=== PATIENT | male | born 1940 | race Caucasian/White ===

== ENCOUNTER 2022-11-28 07:28 | Outpatient (OUT) | payer MEDICARE, OTHER, SELFPAY ==
--- NOTE | 2022-11-28 07:39 | CT_ITS ---
[address] [address] Patient Name: CRISTIN COPPOLA MRN: [id number] date: 1940 Sex: M Assigned Patient Location: CT Current Patient Location: CT Accession/Order Number: [id number] Exam Date: 11/28/2022 07:50 Report Date: 11/28/2022 08:51 At the request of: NON-STAFF PHYSICIAN Procedure: CT chest w con EXAMINATION: CT chest w con HISTORY: Cough R05, Shortness Of Breath R06.02 ; shortness of breath with exertion COMPARISON: No relevant comparison available. TECHNIQUE: Multi-planar CT images were obtained without and/or with IV contrast as indicated by examination type. Axial, Coronal, and Sagittal images. Dose reduction techniques were achieved by using automated exposure control and/or adjustment of mA and/or kV according to patient size and/or use of iterative reconstruction technique. FINDINGS: LUNGS: Fibrous stranding and a 12 mm triangular-shaped opacity within left posterior costophrenic angle. Moderate emphysematous changes. PLEURA: No mass, effusion, or pneumothorax. VASCULATURE: No abnormality. AYAH: No mass or adenopathy. MEDIASTINUM: No mass or adenopathy. CARDIAC: No enlargement, pericardial thickening, or significant calcification. AORTA: Mild dilation of ascending aorta, 4.1 cm. CHEST WALL: No mass or axillary adenopathy. BONES: L1-2 marked central canal and bilateral foramen narrowing secondary to degenerative disc disease and degenerative facet arthropathy. No bone lesion or fracture. LIMITED ABDOMEN: No suspicious findings Limited images of the upper abdomen. OTHER: Negative. IMPRESSION: 1. No pulmonary embolism or significant acute pulmonary infiltrates. 2. Mild stranding and 12 mm triangular-shaped atelectasis versus scarring versus nodule within left costophrenic angle. Follow-up CT chest in 3 months is recommended to document stability versus change. 3. 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 Electronically authenticated by: JULIET SIMON Date: 11/28/2022 08:51
[2022-11-28 07:43] LABS: Estimated GFR (African America >60 (>=60); Estimated GFR (Non-African Ame >60 (>=60)
== END 2022-11-28 07:29 | disposition home or self-care (01) ==
LOC: CT 07:28
DX: R05.9 Cough, unspecified (principal); R06.02 Shortness of breath; R06.09 Other forms of dyspnea
CPT/HCPCS: 36415; 71260; 82565; Q9967

== ENCOUNTER 2022-12-07 12:10 | Emergency (ER) | payer MEDICARE, OTHER, SELFPAY ==
[2022-12-07 12:13] VITALS: BP 166/99; PULSE 75; RESP 20; TEMP 36.5; O2SAT 98; BMI 18.3
[2022-12-07 12:16] VITALS: O2SAT 98
[2022-12-07 12:17] VITALS: BP 166/99; PULSE 64; RESP 16
--- NOTE | 2022-12-07 12:45 | ED_ITS ---
HPI - SOB/Dyspnea General Chief Complaint: Shortness of Breath/Dyspnea Stated Complaint: SHORTNESS OF BREATH Time Seen by Provider: 12/07/22 12:45 Source: patient and family Mode of arrival: walk-in Limitations: no limitations History of Present Illness HPI Narrative: Patient presents emergency department complaining of shortness of breath and nausea. Patient states she's had these symptoms ongoing for at least 4 months. He's had multiple workups done had a CT scan done of his chest a few weeks ago which did not show anything acute. Patient states that was small amount of scar tissue. He also had an endoscopy done by Dr. vera to look into esophagitis and everything looked okay. Patient states at times he feels like he has a hard time swallowing. He complains of feeling nauseated but he is not vomiting. He is able to eat and drink. He denies any weight loss. He denies any fever, chills, or cough. He denies any chest pain. He denies any lower extremity edema, or cramping. He denies any abdominal pain, flank pain, hematuria, dysuria. Patient denies any dizziness, lightheadedness, or palpitations. Related Data Home Medications Medication Instructions Recorded Confirmed famotidine 20 mg tablet 20 mg PO DAILY 12/07/22 12/07/22 folic acid-vit B6-vit B12 2.5 1 tab PO DAILY 12/07/22 12/07/22 mg-25 mg-2 mg tablet (Folbic) hydroxychloroquine 200 mg tablet 200 mg PO BID 12/07/22 12/07/22 levothyroxine 150 mcg tablet 150 mcg PO DAILY 12/07/22 12/07/22 pantoprazole 40 mg tablet,delayed 40 mg PO DAILY 12/07/22 12/07/22 release Previous Rx's Medication Instructions Recorded ondansetron HCl 4 mg tablet 4 mg PO DAILY PRN nausea and 12/07/22 vomiting 4 days #10 tabs Allergies Allergy/AdvReac Type Severity Reaction Status Date / Time Sulfa (Sulfonamide Allergy Intermediate Verified 12/07/22 12:20 Antibiotics) Review of Systems ROS Status of ROS 10 or more systems reviewed and unremarkable except as noted in history and below Exam Narrative Exam Narrative: Nurses notes and vital signs reviewed and patient is not hypoxic. General: Nontoxic, slim, and in no apparent distress. Skin: Warm, dry, no pallor noted. No Rash Head: Normocephalic, atraumatic. Neck: Supple, non-tender. Eye: Pupils are equal, round and EOMI. No scleral icterus. Ears, Nose, Mouth, and Throat: TM clear, no posterior oropharynx erythema or nasal mucosal hypertrophy, uvula is mid-line Oral mucosa is moist Cardiovascular: Regular Rate and Rhythm without murmur, gallop or rub. Respiratory: No accessory muscle use or respiratory distress. Lungs are clear to auscultation, no wheezing, rales or rhonchi Chest Wall: no tenderness Back: No midline thoracic or lumbar vertebral tenderness. No CVA tenderness Musculoskeletal: normal ROM, no calf or popliteal tenderness, no lower extremity edema/swelling GI: Abdomen is soft, non-distended. Normal bowel sounds. No masses appreciated. No tenderness to palpation. No rebound, guarding, or rigidity noted. Neurological: A&O x4. No cranial nerve dysfunction observed. No truncal ataxia. Moves all extremities. Sensation intact. Psychiatric: Cooperative and interactive. Normal mood and affect. Constitutional Vital Signs, click to edit/add: Last Vital Signs Temp 97.7 F 12/07/22 12:13 Pulse 64 12/07/22 12:17 Resp 16 12/07/22 12:17 BP 166/99 H 12/07/22 12:17 Pulse Ox 98 12/07/22 12:16 Course Vital Signs Vital signs: Vital Signs Temperature 97.7 F 12/07/22 12:13 Pulse Rate 75 12/07/22 12:13 Respiratory Rate 20 12/07/22 12:13 Blood Pressure 166/99 H 12/07/22 12:13 Pulse Oximetry 98 12/07/22 12:13 Temperature 97.7 F 12/07/22 12:13 Pulse Rate 64 12/07/22 12:17 Respiratory Rate 16 12/07/22 12:17 Blood Pressure 166/99 H 12/07/22 12:17 Pulse Oximetry 98 12/07/22 12:16 MDM - SOB/Dyspnea MDM Narrative Medical decision making narrative: Patient had an IV established and was given IV fluids. Lab studies and chest x- ray are unremarkable. Patient was ambulated for 5 minutes around the emergency department his oxygen saturation remained stable at 98 percent. Patient is nontoxic. He is advised to follow up with primary care doctor for continued workup. He is advised to also have a cardiac workup. At this time the patient is without objective evidence of an acute process requiring hospitalization or inpatient management. The patient has remained hemodynamically stable. No additional indication for emergent studies at this time. I answered all questions. Discussed discharge instructions including standard anticipatory guidance and what should prompt a return to the emergency department, including if they get worse are not getting better or develops any new or concerning symptoms. I've given them specific time frame in which to follow-up, and who to follow-up with. The patient demonstrates understanding. Patient is nontoxic and stable for discharge with outpatient follow-up. This note was created with the assistance of a speech recognition program. Although the intention is to generate documents that actually reflects the content of the visit, no guarantees can be provided that every mistake has been identified and corrected by editing. Differential Diagnosis Differential diagnosis: Likely acute exacerbation of chronic obstructive airways disease, congestive heart failure, community acquired pneumonia and pulmonary embolism Medical Records Attestation: I reviewed the patient's medical records. Lab Data Attestation: I reviewed the patient's lab results. Labs: Lab Results 12/07/22 Range/Units 12:30 WBC 5.5 (4.0-11.0) 10^3/uL RBC 4.02 L (4.70-6.10) 10^6/uL Hgb 12.3 L (14.0-18.0) g/dL Hct 36.0 L (42.0-54.0) % MCV 89.6 (80.0-94.0) fL MCH 30.6 (25.9-34.0) pg MCHC 34.2 (29.9-35.2) g/dL RDW 13.8 (11.0-15.0) % Plt Count 194 (150-450) 10^3/uL MPV 10.9 (9.5-13.5) fL Neut % (Auto) 79.1 H (43.0-75.0) % Lymph % (Auto) 14.4 L (20.5-60.0) % Mcdowell % (Auto) 5.6 (1.7-12.0) % Eos % (Auto) 0.2 L (0.9-7.0) % Baso % (Auto) 0.5 (0.2-2.0) % Neut # (Auto) 4.3 (1.4-6.5) 10^3/uL Lymph # (Auto) 0.8 L (1.2-3.8) 10^3/uL Mcdowell # (Auto) 0.3 (0.3-0.8) 10^3/uL Eos # (Auto) 0.0 (0.0-0.7) 10^3/uL Baso # (Auto) 0.0 (0.0-0.1) 10^3/uL Abs Immat Gran (auto) 0.01 (0.00-0.03) 10^3/uL Imm/Tot Granulo (auto) 0.2 (0.0-0.5) % Sodium 131 L (136-145) mmol/L Potassium 4.8 (3.5-5.1) mmol/L Chloride 93 L (98-107) mmol/L Carbon Dioxide 28.4 (21.0-32.0) mmol/L Anion Gap 14.4 BUN 19.0 H (7.0-18.0) mg/dL Creatinine 0.95 (0.70-1.30) mg/dL Est GFR ( Amer) >60 (>=60) Est GFR (Non-Af Amer) >60 (>=60) BUN/Creatinine Ratio 20.0 Glucose 81 (74-106) mg/dL Calcium 9.3 (8.5-10.1) mg/dL Total Bilirubin 1.0 (0.2-1.0) mg/dL AST 38 H (15-37) U/L ALT 34 (16-63) U/L Alkaline Phosphatase 44 L (46-116) U/L Troponin I High Sens 11.0 (4.0-76.1) pg/mL NT-Pro-B Natriuret Pep 366.0 (<=1800.0) pg/mL Total Protein 7.0 (6.4-8.2) g/dL Albumin 4.5 (3.4-5.0) g/dL Globulin 2.5 g/dL Albumin/Globulin Ratio 1.8 ECG Data Attestation: I personally reviewed and interpreted this ECG as follows: Discharge Plan Discharge Chief Complaint: Shortness of Breath/Dyspnea Clinical Impression: Chronic dyspnea, Nausea Patient Disposition: Home, Self-Care Time of Disposition Decision: 15:48 Condition: Good Mode of Transportation: Private Vehicle Prescriptions / Home Meds: New ondansetron HCl 4 mg tablet 4 mg PO DAILY PRN (Reason: nausea and vomiting) 4 Days Qty: 10 0RF No Action famotidine 20 mg tablet 20 mg PO DAILY Folbic 2.5-25-2 mg tablet 1 tab PO DAILY hydroxychloroquine 200 mg tablet 200 mg PO BID levothyroxine 150 mcg tablet 150 mcg PO DAILY Rx Instructions: 1 tablet daily M-SA pantoprazole 40 mg tablet,delayed release (DR/EC) 40 mg PO DAILY Instructions: Dyspnea (ED) Stand Alone Forms: Portal Instructions Referrals: Physician,Non-Staff, MD [Primary Care Provider] - 1 week Discharge Date/Time: 12/07/22 15:56
--- NOTE | 2022-12-07 13:00 | ECG_ITS ---
The [facility] Test Date: 2022-12-07 Pat Name: CRISTIN COPPOLA Department: Room: - Gender: Male [employer]: : 1940 Requested By: [id number] Order Number: [id number] Reading MD: OKSANA LIMA Measurements Intervals [place] Rate: 60 P: 54 OH: 210 QRS: -59 QRSD: 100 T: 71 QT: 436 QTc: 436 Interpretive Statements 1100 Sinus rhythm 2231 First degree AV block 3234 Anteroseptal myocardial infarction, age undetermined 7200 Abnormal left axis deviation 9150 abnormal ECG No previous ECG available for comparison Electronically Signed On 12-07-2022 14:37:38 EDT by OKSANA LIMA
[2022-12-07 13:14] LABS: Basophils Percent Auto 0.5 % (0.2-2.0); Eosinophils Percent Auto 0.2 % (0.9-7.0); Hemoglobin 12.3 g/dL (14.0-18.0); Immature Granulocytes Abs Auto 0.01 10^3/uL (0.00-0.03); Immature Granulocytes Pct Auto 0.2 % (0.0-0.5); Lymphocytes Absolute Auto 0.8 10^3/uL (1.2-3.8); Lymphocytes Percent Auto 14.4 % (20.5-60.0); Mean Corpuscular HGB Conc 34.2 g/dL (29.9-35.2); Mean Corpuscular Hemoglobin 30.6 pg (25.9-34.0); Mean Corpuscular Volume 89.6 fL (80.0-94.0); Mean Platelet Volume 10.9 fL (9.5-13.5); Monocytes Absolute Auto 0.3 10^3/uL (0.3-0.8); Monocytes Percent Auto 5.6 % (1.7-12.0); Neutrophils Absolute Auto 4.3 10^3/uL (1.4-6.5); Neutrophils Percent Auto 79.1 % (43.0-75.0); Platelet Count 194 10^3/uL (150-450); Red Blood Count 4.02 10^6/uL (4.70-6.10); Red Cell Distribution Width 13.8 % (11.0-15.0); White Blood Count 5.5 10^3/uL (4.0-11.0)
[2022-12-07 13:27] LABS: Anion Gap 14.4
[2022-12-07 13:34] LABS: Alanine Aminotransferase 34 U/L (16-63); Albumin Globulin Ratio 1.8; Albumin Level 4.5 g/dL (3.4-5.0); Alkaline Phosphatase 44 U/L (46-116); Aspartate Amino Transferase 38 U/L (15-37); Calcium 9.3 mg/dL (8.5-10.1); Carbon Dioxide 28.4 mmol/L (21.0-32.0); Chloride 93 mmol/L (98-107); Estimated GFR (African America >60 (>=60); Estimated GFR (Non-African Ame >60 (>=60); Globulin 2.5 g/dL; Glucose 81 mg/dL (74-106); Potassium 4.8 mmol/L (3.5-5.1); Sodium 131 mmol/L (136-145)
[2022-12-07 13:47] VITALS: PULSE 76
--- NOTE | 2022-12-07 14:23 | XR_ITS ---
The [address] [address] Patient Name: CRISTIN COPPOLA MRN: [id number] date: 1940 Sex: M Assigned Patient Location: ER Current Patient Location: ER Accession/Order Number: [id number] Exam Date: 12/07/2022 14:20 Report Date: 12/07/2022 14:52 At the request of: ANNITA CASTAÑEDA Procedure: XR chest 1V EXAM: XR chest 1V HISTORY: Dyspnea. COMPARISON: CT dated 12/18/2022 FINDINGS: The aorta is unfolded. There is atelectasis at the left lung base. The heart, mediastinum, pulmonary vasculature, and bony thorax demonstrate no discrete acute abnormality. There is no evidence of an infiltrate, pleural effusion or pneumothorax. There is mild prominence of the lung markings. XR/XR chest 1V IMPRESSION: No evidence of an acute cardiopulmonary abnormality. Electronically authenticated by: CRISTIN CRUZ Date: 12/07/2022 14:52
== END 2022-12-07 15:56 | disposition home or self-care (01) ==
PROVIDERS: Emergency Provider Emergency Medicine
DX: R06.09 Other forms of dyspnea (principal); R11.0 Nausea; Z79.899 Other long term (current) drug therapy; Z79.890 Hormone replacement therapy
CPT/HCPCS: 36415; 71045; 80053; 83880; 84484; 85025; 93005; 99285

== ENCOUNTER 2023-01-08 12:34 | Outpatient (OUT) | payer MEDICARE, OTHER, SELFPAY ==
--- NOTE | 2023-01-08 12:37 | FL_ITS ---
The [address] [address] Patient Name: CRISTIN COPPOLA MRN: [id number] date: 1940 Sex: M Assigned Patient Location: [place] Current Patient Location: [place] Accession/Order Number: [id number] Exam Date: 01/08/2023 13:00 Report Date: 01/08/2023 14:33 At the request of: NON-STAFF PHYSICIAN Procedure: FL modified barium swallow EXAMINATION: FL modified barium swallow HISTORY: Difficulty Swallowing R13.14 COMPARISON: No relevant comparison available. TECHNIQUE: A swallowing evaluation was performed with fluoroscopy in the usual manner. Standard level fluoroscopic mode of operation utilized. Speech pathology was present. The procedure was recorded. The patient was given thin liquids, nectar and honey consistencies FINDINGS: ORAL PHASE: Normal deglutition. PHARYNGEAL PHASE: No movement of the epiglottis. Pooling of food stuffs in the vallecula , this did clear with chin tuck and dry swallowing ASPIRATION: Penetration and aspiration with thin liquids STRUCTURE: Pooling of food stuffs in the upper esophagus OTHER: Negative. FL/FL modified barium swallow IMPRESSION: Penetration and aspiration with thin liquids, this did elicit a mild cough reflex Pooling of foodstuffs in the vallecula and upper esophagus Electronically authenticated by: STEPH MICHELE Date: 01/08/2023 14:33
== END 2023-01-08 12:35 | disposition home or self-care (01) ==
LOC: FL 12:34
DX: R13.14 Dysphagia, pharyngoesophageal phase (principal); R49.0 Dysphonia
CPT/HCPCS: 74230; 92611

== ENCOUNTER 2023-01-30 08:41 | Outpatient (OUT) | payer MEDICARE, OTHER, SELFPAY ==
--- NOTE | 2023-01-30 10:14 | CA_ITS ---
Patient: CRISTIN COPPOLA Exam Date: 01/30/2023 : 1940 Gender:M Ordering : DR. JESS QUEVEDO M.D. Admission #: [id number] Family : DR BRANDY SUTTONTRANG Oumou Order #: [id number] CLICK HERE TO VIEW EXAM ECHOCARDIOGRAM REPORT PROCEDURE: CA ECHO DOPPLER COMPLETE INDICATIONS: Dyspnea COMPARISON: None. DESCRIPTION: COMPLETE ECHOCARDIOGRAM Real-time transthoracic echocardiography with 2D, M-mode, spectral and color flow Doppler performed. QUALITY: Technical quality was adequate. LEFT VENTRICLE: Normal chamber size. Normal left ventricular wall thickness. Global left ventricular systolic function is normal. LV EF: Visual estimation of left ventricular ejection fraction is 55% DIASTOLIC: Grade I diastolic dysfunction. ATRIAL SEPTUM: LEFT ATRIUM: Appears moderately dilated. RIGHT ATRIUM: Mildly dilated. RIGHT VENTRICLE: Moderate to severe dilatation. Moderately decreased right ventricular systolic function. 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 No stenosis with mild to moderate regurgitation. Mild pulmonary hypertension. RVSP 37 mmHg. 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 MITRAL VALVE: Normal mobility and thickness. No evidence of mitral valve stenosis. There is no mitral annular calcification. Mild mitral regurgitation. AORTIC VALVE: Normal trileaflet appearance. No visible sclerosis. Normal leaflet mobility. No evidence of aortic valve stenosis. No aortic regurgitation. AORTIC ROOT: Mildly dilated, measuring 3.9 cm. PULMONIC VALVE: Grossly normal. No stenosis. Mild regurgitation. PERICARDIUM: No evidence of pericardial effusion. IVC: Collapses with inspirations. Normal size. PLEURA: CONCLUSION: 1. The left ventricle is normal in size and exhibits normal systolic function. LVEF is estimated at 55%. 2. The right ventricle is moderately to severely dilated with moderately reduced systolic function. 3. Mild diastolic dysfunction. 4. 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 The differential includes vegetation, thrombus, and less likely tumor. 5. Mild to moderate tricuspid regurgitation. 6. Mild mitral and pulmonic regurgitation. 7. Mildly elevated right sided pressures. 8. A transesophageal echocardiogram (or a cardiac MRI) is recommended for further assessment. Adult Echocardiography Procedure Report Left Ventricle LVEDD (3.7 - 5.6 cm): 4.45 cm LVESD (2.2 - 4.0 cm): 2.91 cm LVIVS thickness (0.6 - 1.2 cm): 0.91 cm LVPW thickness (0.5 - 1.0 cm): 0.82 cm e': 0.11 m/s E - e': 3.83 LVOT Max Gradient: 1.69 mm[Hg] LVOT Area (cm2): 0.65 m/s Peak Velocity (LVOT): 0.65 m/s Mean Velocity (LVOT): 0.36 m/s LVOT Diameter 2.16 cm Left Atrium Left Atrium Systolic Dimension: 2.83 cm Mitral Valve MV E to A Ratio: 0.71 Mitral Valve A-Wave Peak Velocity: 0.60 m/s Mitral Valve E-Wave Peak Velocity: 0.43 m/s Right Ventricle RV Internal Diastolic Dimension: 5.13 cm Aorta AO Root Diam: 3.89 cm Ascending Ao Diam: 3.35 cm Aortic Valve AoV Area (Peak Andrew): 2.22 cm2, 2.22 cm2 AoV Area (VTI): 1.62 cm2, 1.62 cm2 Peak Velocity(Antegrade Flow): 1.07 m/s Peak Gradient(Antegrade Flow): 4.62 mm[Hg] Mean Velocity(Antegrade Flow): 0.69 m/s Mean Gradient(Antegrade Flow): 2.29 mm[Hg] Velocity Time Integral: 25.09 cm Tricuspid Valve Peak Velocity (Regurgitant Flow): 2.92 m/s, 2.60 m/s, 2.86 m/s Pulmonic Valve Mean Gradient: 1.74 mm[Hg] Mean Velocity: 0.60 m/s Peak Velocity: 0.94 m/s, 1.07 m/s Peak Gradient: 4.56 mm[Hg], 3.50 mm[Hg] Right Atrium Dictated by: Antoni Dan M.D. on 01/30/2023 at 10:16 Approved by: Antoni Dan M.D. on 01/30/2023 at 10:36
--- NOTE | 2023-01-30 10:30 | PM.PN ---
Progress Note: Subjective Subjective Interval history: Patient came in for an outpatient Echocardiogram. 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 I notified [facility] to get a STAT read on the ECHO and I also notified the ordering doctor, Dr. Scott Guillaume, with preliminary results. Dr. Guillaume stated that it was alright for the patient to go home and that once he had the official report he would refer the patient to a Kiln Setter. I released the patient to go home and made him aware that his doctor would be notifying him with further instructions once he had the test results.
== END 2023-01-30 08:42 | disposition home or self-care (01) ==
LOC: CARD 08:43
DX: R06.00 Dyspnea, unspecified (principal); I08.1 Rheumatic disorders of both mitral and tricuspid valves
CPT/HCPCS: 93306